=== PATIENT | female | born 2000 | race Caucasian/White ===

== ENCOUNTER 2021-06-24 19:06 | Emergency (ER) | payer OTHER ==
[~2021-06-24 19:06] MED LIST: BENTYL 20MG TAB20 MG PO; LODINE CAP 300300 MG PO; PEPCID20 MG PO; ZOFRAN ODT 4 MG4 MG SL
[2021-06-24 22:17] LABS: RED BLOOD COUNT 4.61 M/UL (4.00-5.10); WHITE BLOOD COUNT 7.8 K/UL (4.5-11.0)
[2021-06-24 22:36] LABS: BUN/CREATININE RATIO 13 (0-10)
== END 2021-06-24 22:20 | disposition home or self-care (01) ==
LOC: ER1 19:06
PROVIDERS: Physician Assistant
DX: K62.5 Hemorrhage of anus and rectum (principal); F17.290 Nicotine dependence, other tobacco product, uncomplicated
CPT/HCPCS: 80048; 85025; 85610; 99283

== ENCOUNTER → 2021-07-12 | Day surgery (SDC) | payer OTHER ==
[~2021-07-12] MED LIST changes: +SPRINTEC 28 DA1 EACH PO
== END | disposition home or self-care (01) ==
LOC: OR 06:26
DX: K62.5 Hemorrhage of anus and rectum (principal); F17.290 Nicotine dependence, other tobacco product, uncomplicated; Z20.822 Contact with and (suspected) exposure to COVID-19
CPT/HCPCS: 84703; J2250; J2704; J7030

== ENCOUNTER 2021-09-07 17:00 | Emergency (ER) | payer OTHER | END 2021-09-07 17:39 | disposition left against medical advice (07) | LOC: ER1 17:00 | DX: Z53.21 Procedure and treatment not carried out due to patient leaving prior to being seen by health care provider (principal) ==

== ENCOUNTER 2021-11-17 09:26 | Emergency (ER) | payer OTHER ==
[2021-11-17 10:21] LABS: HEMOGLOBIN 15.2 gm/dl (12.3-15.3); RED BLOOD COUNT 5.08 M/UL (4.00-5.10); WHITE BLOOD COUNT 17.5 K/UL (4.5-11.0)
[2021-11-17 10:38] LABS: BUN/CREATININE RATIO 18 (0-10)
[2021-11-17] MEDS ORDERED: ZOFRAN 4 MG TAB4 MG PO (12:36)
[2021-11-17] MEDS ORDERED: BENTYL 20MG TAB20 MG PO (12:36)
== END 2021-11-17 13:00 | disposition home or self-care (01) ==
LOC: ER1 09:26
PROVIDERS: Physician Assistant
DX: D72.829 Elevated white blood cell count, unspecified (principal); R11.2 Nausea with vomiting, unspecified; R19.7 Diarrhea, unspecified
CPT/HCPCS: 80053; 81001; 83690; 84703; 85025; 96374; 96376; 99284; J2405; Q9967

== ENCOUNTER → 2022-02-14 | Outpatient (CLI) | payer OTHER ==
[~2022-02-14] MED LIST changes: +ZOFRAN 4 MG TAB4 MG PO
== END ==
LOC: NM 08:30
DX: M43.17 Spondylolisthesis, lumbosacral region (principal); M51.86 Other intervertebral disc disorders, lumbar region; Z01.812 Encounter for preprocedural laboratory examination
CPT/HCPCS: 78300; 78830; 84703; A9503

== ENCOUNTER → 2022-03-07 | Outpatient (CLI) | payer OTHER ==
[2022-03-07 13:51] LABS: HEMOGLOBIN 13.9 gm/dl (12.3-15.3); RED BLOOD COUNT 4.66 M/UL (4.00-5.10); WHITE BLOOD COUNT 7.4 K/UL (4.5-11.0)
[2022-03-07 14:12] LABS: BUN/CREATININE RATIO 11 (0-10)
== END ==
LOC: OPSV2 12:30 → EDSTATUS 12:30 → OPSV2 12:47
PROVIDERS: Orthopaedic Surgery
DX: Z01.818 Encounter for other preprocedural examination (principal); M43.17 Spondylolisthesis, lumbosacral region; M48.07 Spinal stenosis, lumbosacral region
CPT/HCPCS: 71046; 80048; 81001; 85027; 85610; 85730; 87081; 87086; 93005

== ENCOUNTER → 2022-03-13 | Outpatient (CLI) | payer OTHER ==
[~2022-03-13] MED LIST changes: +ROXICODONE5 MG PO
== END ==
LOC: KOH-I 13:21
DX: M43.10 Spondylolisthesis, site unspecified (principal); M51.36 Other intervertebral disc degeneration, lumbar region
CPT/HCPCS: 72131

== ENCOUNTER → 2022-03-14 | Outpatient (CLI) | payer OTHER ==
[2022-03-14 14:13] LABS: BUN/CREATININE RATIO 8 (0-10)
== END ==
LOC: LAB 13:12
PROVIDERS: Orthopaedic Surgery
DX: Z01.812 Encounter for preprocedural laboratory examination (principal)
CPT/HCPCS: 36415; 80048; 86850; 86900; 86901

== ENCOUNTER 2022-03-15 05:24 | Inpatient (IN) | payer OTHER ==
[~2022-03-15] VITALS: Ht 165.1 cm; Wt 95.3 kg
[~2022-03-15 05:24] MED LIST changes: -ROXICODONE5 MG PO
[2022-03-15 13:54] LABS: HEMOGLOBIN 12.9 gm/dl (12.3-15.3); RED BLOOD COUNT 4.37 M/UL (4.00-5.10); WHITE BLOOD COUNT 12.4 K/UL (4.5-11.0)
[2022-03-15 14:26] LABS: BUN/CREATININE RATIO 10 (0-10)
[2022-03-15] MEDS ORDERED: ROXICODONE5 MG PO (16:15)
[2022-03-16 04:14] LABS: HEMOGLOBIN 11.9 gm/dl (12.3-15.3); RED BLOOD COUNT 4.15 M/UL (4.00-5.10); WHITE BLOOD COUNT 18.4 K/UL (4.5-11.0)
[2022-03-16 05:27] LABS: BUN/CREATININE RATIO 12 (0-10)
[2022-03-17 06:09] LABS: HEMOGLOBIN 10.8 gm/dl (12.3-15.3)
[2022-03-17 06:13] LABS: RED BLOOD COUNT 3.67 M/UL (4.00-5.10); WHITE BLOOD COUNT 10.7 K/UL (4.5-11.0)
[2022-03-17 06:48] LABS: BUN/CREATININE RATIO 10 (0-10)
[2022-03-18 01:38] LABS: HEMOGLOBIN 11.6 gm/dl (12.3-15.3); RED BLOOD COUNT 3.94 M/UL (4.00-5.10)
[2022-03-18 01:59] LABS: BUN/CREATININE RATIO 11 (0-10)
[2022-03-19 06:59] LABS: HEMOGLOBIN 11.1 gm/dl (12.3-15.3); RED BLOOD COUNT 3.79 M/UL (4.00-5.10); WHITE BLOOD COUNT 9.2 K/UL (4.5-11.0)
[2022-03-19 07:01] LABS: BUN/CREATININE RATIO 10 (0-10)
== END 2022-03-19 15:10 | disposition home or self-care (01) | DRG 460 ==
LOC: OR 05:24 → CCU 15:42 → PROG CARE 03-17 17:48 → MED SURG 4 03-18 17:32
PROVIDERS: Internal Medicine; ADMIT Orthopaedic Surgery
PROC: 01NB0ZZ Release Lumbar Nerve, Open Approach (ICD-10-PCS; 2022-03-15)
PROC: 01NR0ZZ Release Sacral Nerve, Open Approach (ICD-10-PCS; 2022-03-15)
PROC: 4A11X4G Monitoring of Peripheral Nervous Electrical Activity, Intraoperative, External Approach (ICD-10-PCS; 2022-03-15)
PROC: 0SG3071 Fusion of Lumbosacral Joint with Autologous Tissue Substitute, Posterior Approach, Posterior Column, Open Approach (ICD-10-PCS; principal; 2022-03-15 07:30)
DX: M43.17 Spondylolisthesis, lumbosacral region (principal); G89.29 Other chronic pain; M54.9 Dorsalgia, unspecified; R55 Syncope and collapse; M54.10 Radiculopathy, site unspecified; F41.0 Panic disorder [episodic paroxysmal anxiety]; K21.9 Gastro-esophageal reflux disease without esophagitis; E66.9 Obesity, unspecified; G43.909 Migraine, unspecified, not intractable, without status migrainosus; D72.829 Elevated white blood cell count, unspecified; Z98.890 Other specified postprocedural states; Z74.01 Bed confinement status; Z83.3 Family history of diabetes mellitus; Z82.3 Family history of stroke; Z82.49 Family history of ischemic heart disease and other diseases of the circulatory system
CPT/HCPCS: 36415; 72100; 72110; 76000; 80048; 80053; 82962; 84703; 85025; 85027; 97116; 97116-GP-CQ; 97162; C1713; C1762; J0690; J1100; J1170; J1200; J1885; J2250; J2405; J2704; J3010; J3370; J3475; J7040; J7050

== ENCOUNTER → 2022-03-31 | Outpatient (CLI) | payer OTHER ==
[~2022-03-31] MED LIST changes: +ROXICODONE5 MG PO
== END ==
LOC: EXRD 03-30 11:15
DX: M79.662 Pain in left lower leg (principal); M79.661 Pain in right lower leg; M71.22 Synovial cyst of popliteal space [Baker], left knee
CPT/HCPCS: 93970